=== PATIENT | female | born 1990 | race African-American/Black ===

== ENCOUNTER 2023-05-15 21:55 | Emergency (ER) | payer OTHER, SELFPAY ==
--- NOTE | ~2023-05-15 | XR_ITS ---
EXAMINATION: XR chest 1V portable Exam Date/Time: 05/15/2023 22:19 CDT HISTORY: SOB, COUGH. HX ASTHMA Comparison: None. RESULT: Lines, tubes, and devices: None. Lungs and pleura: Clear. Cardiomediastinal silhouette: Normal. Other: No acute osseous or upper abdominal finding. IMPRESSION: No acute cardiopulmonary process. Reviewed, dictated and finalized at location K.
[2023-05-15 22:01] VITALS: BP 121/84; PULSE 120; RESP 30; TEMP 36.7; O2SAT 96
--- NOTE | 2023-05-15 22:12 | ECG_ITS ---
Measurements Intervals [place] Rate: 104 P: 71 [place]: 135 QRS: 40 QRSD: 90 T: -23 QT: 325 QTc: 429 Interpretive Statements SINUS TACHYCARDIA NONSPECIFIC T-WAVE ABNORMALITY NO PREVIOUS ECG AVAILABLE FOR COMPARISON Electronically Signed On 05-16-2023 13:21:18 CDT by Meera Schwartz M.D.
[2023-05-15] MEDS: IPRATROPIUM BR 0.02% INH SOLN 0.5 MG/2.5 ML VIAL 1.5 MG INHALATION (22:27)
[2023-05-15] MEDS: ALBUTEROL SULFATE NEB 2.5 MG/3 ML INH 10 MG INHALATION (22:27)
[2023-05-15] MEDS: SODIUM CHLORIDE 0.9% IV 2,000 ML 999 ML IV CONT (22:29)
[2023-05-15 22:30] VITALS: BP 133/85; PULSE 100; PULSE 107; RESP 14; RESP 16; O2SAT 97; O2SAT 99
[2023-05-15] MEDS: MAGNESIUM SULF 2 GM/WATER 50ML 2 GM/50 ML BAG IVPB (22:31)
[2023-05-15 22:54] LABS: Basophils Percent Auto 0.2 % (0.2-1.2); Eosinophils Absolute Auto 0.2 K/mm3 (0-0.3); Eosinophils Percent Auto 3.6 % (0-4.4); Hematocrit 33.5 % (37.0-47.0); Immature Granulocyte Absolute 0.02 K/mm3 (0.00-0.031); Immature Granulocyte Percent A 0.3 % (0-0.5); Lymphocytes Absolute Auto 1.47 K/mm3 (0.9-3.2); Lymphocytes Percent Auto 23.9 % (18.3-44.2); Mean Corpuscular HGB Conc 32.8 g/dl (32-36); Mean Corpuscular Hemoglobin 28.6 pg (26-34); Mean Platelet Volume 10.7 fl (7.4-10.4); Monocytes Absolute Auto 0.6 K/mm3 (0.1-0.6); Monocytes Percent Auto 9.6 % (2.6-8.5); Neutrophils Absolute Auto 3.9 K/mm3 (1.3-6.7); Neutrophils Percent Auto 62.4 % (45.5-73.1); Platelet Count Result 182 k/mm3 (150-375); Red Blood Count 3.85 M/mm3 (4.2-5.4); Red Cell Distribution Width 13.4 % (11.5-14.5); White Blood Count 6.2 K/mm3 (4.5-10.0)
[2023-05-15 23:12] LABS: Alanine Aminotransferase 17 U/L (6-35); Albumin Level 4.2 g/dL (3.5-5.1); Alkaline Phosphatase 59 U/L (38-126); Anion Gap 6 mmol/L (8-16); Aspartate Amino Transferase 21 U/L (14-36); Bilirubin,Total 0.7 mg/dL (0.2-1.3); Blood Urea Nitrogen 11 mg/dL (7-17); Calcium 8.9 mg/dL (8.4-10.2); Carbon Dioxide 28 mmol/L (22-30); Chloride 105 mmol/L (98-107); Estimated CRCL calculation 101 ml/min; Estimated Glomerular Filt Rate > 60; Glucose 112 mg/dL (65-110); Potassium 2.9 mmol/L (3.4-5.0); Sodium 139 mmol/L (137-145)
[2023-05-16 00:42] LABS: Influenza A QL RT-PCR Negative (Negative); Influenza B QL RT-PCR Negative (Negative); RSV RNA, RT-PCR Negative (Negative); SARS-CoV-2 RNA PCR Negative (Negative)
[2023-05-16 01:50] VITALS: BP 132/74; PULSE 80; RESP 19; O2SAT 100
--- NOTE | 2023-05-21 00:57 | ED.GENADULT ---
HPI - General Adult General Chief complaint: Shortness of Breath/Dyspnea Stated complaint: SOB Time Seen by Provider: 05/15/23 22:17 History of Present Illness HPI narrative: This is a 32-year-old female presenting ED with chief complaint of difficulty breathing. Patient has a history of asthma. She has been taking her albuterol inhaler. It is not been helping. Patient denies fever chills productive cough or URI symptoms. Related Data Allergies Allergy/AdvReac Type Severity Reaction Status Date / Time No Known Allergies Allergy Verified 05/15/23 23:33 Exam Narrative: APPEARANCE: appears uncomfortable, holding her child in her arms Head: atraumatic. EYES: EOMI, NOSE: Atraumatic NECK: Trachea midline RESPIRATORY: Increased respiratory rate, wheezing in all lim CARDIOVASCULAR: RRR, ABDOMINAL: Non-distended MUSCULOSKELETAl: No obvious deformities NEURO: Alert. Moving 4/4 extremities SKIN:: Warm, dry. Normal color PSYCHIATRIC: Normal affect Course Vital Signs Vital signs: Vital Signs Temperature 98.1 F 05/15/23 22:01 Pulse Rate 120 H 05/15/23 22:01 Respiratory Rate 30 H 05/15/23 22:01 Blood Pressure 121/84 05/15/23 22:01 Pulse Oximetry 96 05/15/23 22:01 Oxygen Delivery Room Air 05/15/23 22:01 Temperature 98.1 F 05/15/23 22:01 Pulse Rate 80 05/16/23 01:50 Respiratory Rate 19 05/16/23 01:50 Blood Pressure 132/74 05/16/23 01:50 Pulse Oximetry 100 05/16/23 01:50 Oxygen Delivery Room Air 05/15/23 22:30 Medical Decision Making [facility] Narrative Medical decision making narrative: -Presentation: 32-year-old female presenting respiratory distress with history of asthma -DDX includes but is not limited to: Asthma exacerbation, pneumonia, pneumothorax. -Co-morbidities complicating care: asthma -Social determinants of health: noncontributory -External Chart Review: none -Hx from independent Sources: none -Independent interpretation of studies: chest x-ray normal. Independent EKG interpretation: Rhythm [sinus], Rate [104], [place] -[normal], [place] -[normal], QRS [narrow], QTC [normal], T waves -[negative for concerning inversions], ST Segments - [Negative for concerning elevations] Final interpretations: sinus tach -Discussion of Management/Consultants: none -Dx tests considered but not ordered: none -Procedures: none -Interventions: hour long breathing treatment, dexamethasone, magnesium -Shared decision making / Disposition: upon re-evaluation patient states she is feeling better. She was discharged with primary care follow-up. -RX albuterol, 5 day prednisone course Vital Signs Vital Signs: Vital Signs Temperature 98.1 F 05/15/23 22:01 Pulse Rate 120 H 05/15/23 22:01 Respiratory Rate 30 H 05/15/23 22:01 Blood Pressure 121/84 05/15/23 22:01 Pulse Oximetry 96 05/15/23 22:01 Oxygen Delivery Room Air 05/15/23 22:01 Temperature 98.1 F 05/15/23 22:01 Pulse Rate 80 05/16/23 01:50 Respiratory Rate 19 05/16/23 01:50 Blood Pressure 132/74 05/16/23 01:50 Pulse Oximetry 100 05/16/23 01:50 Oxygen Delivery Room Air 05/15/23 22:30 Lab Data 05/15/23 22:45 05/15/23 22:45 Labs: Lab Results 05/15/23 05/16/23 Range/Units 22:45 00:02 WBC 6.2 (4.5-10.0) K/mm3 RBC 3.85 L (4.2-5.4) M/mm3 Hgb 11.0 L (12.0-15.0) g/dL Hct 33.5 L (37.0-47.0) % MCV 87.0 (80-100) fl MCH 28.6 (26-34) pg MCHC 32.8 (32-36) g/dl RDW 13.4 (11.5-14.5) % Plt Count 182 (150-375) k/mm3 MPV 10.7 H (7.4-10.4) fl Immature Gran % (Auto) 0.3 (0-0.5) % Neut % (Auto) 62.4 (45.5-73.1) % Lymph % (Auto) 23.9 (18.3-44.2) % [place] % (Auto) 9.6 H (2.6-8.5) % Eos % (Auto) 3.6 (0-4.4) % Baso % (Auto) 0.2 (0.2-1.2) % Lymph # (Auto) 1.47 (0.9-3.2) K/mm3 [place] # (Auto) 0.6 (0.1-0.6) K/mm3 Eos # (Auto) 0.2 (0-0.3) K/mm3 Baso # (Auto) 0.0
== END 2023-05-16 01:50 | disposition home or self-care (01) ==
PROVIDERS: Emergency Provider Emergency Medicine
DX: J45.901 Unspecified asthma with (acute) exacerbation (principal); Z20.822 Contact with and (suspected) exposure to COVID-19; R00.0 Tachycardia, unspecified; R94.31 Abnormal electrocardiogram [ECG] [EKG]
CPT/HCPCS: 36415; 71045; 80053; 85025; 87637; 93005; 94640; 96361; 96365; 96372; 99284; J1100; J3475; J7030